=== PATIENT | male | born 1975 | race African-American/Black ===

== ENCOUNTER 2020-07-22 17:54 | Inpatient (IN) | payer OTHER ==
[~2020-07-22 17:54] MED LIST: Iopamidol-370 76% 500 ML 1 ML ONE; Rocuronium Bromide 10 MG/ML (10ML VIAL) ONE; Succinylcholine Chloride 20 MG/ML 10 ml SYRINGE FS ONE
[2020-07-22] MEDS ORDERED: Lorazepam 2 MG/ML VIAL ONE ×2 (18:00→19:33)
[2020-07-22] MEDS ORDERED: Rocuronium Bromide 10 MG/ML (10ML VIAL) ONE (18:15)
[2020-07-22] MEDS ORDERED: Fentanyl 100 MCG/2 ML VIAL ONE (18:25)
[2020-07-22] MEDS ORDERED: fentaNYL Citrate/PF 2,000 MCG in Sodium Chloride 0.9% 60 ML IV SCH (18:46)
[2020-07-22] MEDS ORDERED: Propofol 1,000 MG/100 ML VIAL IV ONE (18:58)
[2020-07-22] MEDS ORDERED: Boostrix 0.5 ML VIAL ONE (19:01)
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
[2020-07-22 19:06] LABS: Bilirubin Negative (Negative); Blood, Urine Negative (Negative); Clarity Clear (Clear); Glucose, Urine (Dipstick) Normal (Negative); Ketone, Urine Negative (Negative); Leukocyte Negative Leu/uL (Negative); Nitrite Negative (Negative); Protein, Urine (Dipstick) 20 mg/dL (Neg-Trace); Specific Gravity, Urine 1.017 (1.002-1.036); Urobilinogen Normal mg/dL (Less than 2); pH, Urine 5.5 (5.0-9.0)
[2020-07-22 19:11] LABS: #Basophils 0.1 thou/uL (0.0-0.2); #Eosinphils 0.1 thou/uL (0.0-0.7); #Lymphocytes 1.6 thou/uL (1.20-3.40); #Monocytes 1.2 thou/uL (0.11-0.59); #Neutrophils 13.2 thou/uL (1.40-6.50); %Basophils 0.4 % (0.0-1.0); %Eosinophils 0.9 % (0.0-10.0); %Lymphocytes 9.6 % (21.0-51.0); %Monocytes 7.5 % (0.0-10.0); %Neutrophils 81.6 % (42.0-75.0); Hemoglobin 13.7 g/dL (14.0-18.0); Mean Corpuscular HGB CONC 33.5 g/dL (32.0-36.0); Mean Corpuscular Hemoglobin 29.7 pg (27.0-31.0); Mean Corpuscular Volume 88.8 fL (78.0-98.0); Mean Platelet Volume 8.3 fL (7.4-10.4); Platelet Count 225 thou/uL (130-400); RBC Distribution Width 12.4 % (11.5-14.5); Red Blood Cell (RBC) Count 4.62 mill/uL (4.70-6.10); White Blood Cell (WBC) Count 16.2 thou/uL (4.8-10.8)
[2020-07-22 19:18] LABS: INR-International Normal Ratio 0.9; PTT 22.9 sec (22.9-36.1); Prothrombin Time 12.5 sec (12.0-14.7)
[2020-07-22 19:23] LABS: Actual Bicarbonate (HCO3a) 20.7 mEq/L (22-28); Analyzer IN Cardio ER; Base Excess (BEa) -3.2 mEq/L (-2.0 to +3.0); CO2 Tension 33.9 mmHg (35.0-45.0); Calcium, Ionized (arterial) 1.17 mmol/L (1.12-1.30); Carboxyhemoglobin (COHb) 3.7 gm% (0.0-3.0); Hemoglobin (Hb) 14.7 g/dL (14.0-18.0); O2 Tension (PaO2), arterial 91.5 mmHg (80.0-100.0); Potassium - ABG Lab 4.09 mmol/L (3.70-5.30)
[2020-07-22 19:24] LABS: Puncture Site LRA
[2020-07-22 19:25] LABS: ALV-art Gradient 151.325 (0-20)
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
[2020-07-22 19:39] LABS: ALT (SGPT) 20 U/L (8-55); AST (SGOT) 28 U/L (5-34); Acetaminophen Less than 6.0 mcg/mL (10.0-30.0); Albumin 3.7 g/dL (3.5-5.0); Alcohol Less than 10 mg/dL (Less than 10); Alkaline Phosphatase 95 U/L (40-110); Anion Gap 12 mmol/L (10-20); BUN (Urea Nitrogen) 17 mg/dL (8.9-20.6); Bilirubin, Total 0.3 mg/dL (0.2-1.2); CK (CPK) 679 U/L (30-200); Calc. Creatinine Clearance 0 mL/min (70-130); Calcium 8.3 mg/dL (7.8-10.44); Carbon Dioxide 21 mmol/L (22-29); Chloride 105 mmol/L (98-107); Estimated GFR-MDRD 64; Globulin 2.9 g/dL (2.4-3.5); Glucose 114 mg/dL (70-105); Lipase 21 U/L (8-78); Protein, Total 6.6 g/dL (6.0-8.3); Salicylate Less than 8.0 mg/dL (15.0-30.0); Sodium 134 mmol/L (136-145)
[2020-07-22] MEDS ORDERED: Lidocaine 1% (PF) 30 ML VIAL ONE (20:00)
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
[2020-07-22 20:38] LABS: Medtox Reader # READER 4; THC/Cannabinoid Screen Not Detected (NotDetected)
[2020-07-22 20:39] LABS: Amphetamine Not Detected (NotDetected); Barbiturates Screen Not Detected (NotDetected); Benzodiazepine Screen Not Detected (NotDetected); Cocaine Metabolite Screen Not Detected (NotDetected); Medtox Control Line Valid? VALID (VALID); Methadone Not Detected (NotDetected); Methamphetamine Not Detected (NotDetected); Opiate Screen Not Detected (NotDetected); Oxycodone Screen Not Detected (NotDetected); Phencyclidine (PCP) Detected (NotDetected); Tricyclic Screen Not Detected (NotDetected)
[2020-07-22] MEDS ORDERED: Dextrose 50% Abboject 50 ML SYRINGE SLOW IVP PRN (21:06)
[2020-07-22] MEDS ORDERED: Ondansetron ODT 4 MG TAB PO PRN (21:06)
[2020-07-22] MEDS ORDERED: hydrALAZINE 20 MG/ML VIAL SLOW IVP PRN (21:06)
[2020-07-22] MEDS ORDERED: Ventilator Sedation Protocol 1 EACH FS SCH (21:06)
[2020-07-22] MEDS ORDERED: Ondansetron PF 4 MG/2 ML Vial IVP PRN (21:06)
[2020-07-22] MEDS ORDERED: Dextrose 5% in Water 1,000 ML IV PRN (21:06)
[2020-07-22] MEDS ORDERED: Propofol BOLUS 1,000 MG/100 ML VIAL IV PRN (21:13)
[2020-07-22] MEDS ORDERED: Lorazepam 2 MG/ML VIAL SLOW IVP PRN (21:13)
[2020-07-22] MEDS ORDERED: DISCONTINUE PREVIOUS NARCOTIC PAIN MEDICATIONS AND BENZODIAZEPINES FS SCH (21:13)
[2020-07-22] MEDS ORDERED: Morphine 2 MG/ML VIAL SLOW IVP PRN (21:13)
[2020-07-22] MEDS ORDERED: Fentanyl BOLUS 250 ML IVPB PRN (21:13)
[2020-07-22 21:15] VITALS: BMI 34.5
[2020-07-22] MEDS: Famotidine/PF 20 mg/2ml Vial SLOW IVP SCH (21:53)
[2020-07-22] MEDS: Propofol 1,000 MG/100 ML VIAL IV PRN (21:53)
[2020-07-22] MEDS: Sodium Chloride 0.9% 1,000 ML IV SCH (21:56)
[2020-07-22 22:19] LABS: Lactic Acid 2.1 mmol/L (0.5-2.2)
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
[2020-07-23] MEDS: Propofol 1,000 MG/100 ML VIAL IV PRN ×3 (00:34→04:58)
[2020-07-23] MEDS: Sodium Chloride 0.9% 1,000 ML IV SCH (03:20)
[2020-07-23 03:54] LABS: #Basophils 0.1 thou/uL (0.0-0.2); #Eosinphils 0.1 thou/uL (0.0-0.7); #Lymphocytes 2.3 thou/uL (1.20-3.40); #Monocytes 1.2 thou/uL (0.11-0.59); #Neutrophils 8.9 thou/uL (1.40-6.50); %Basophils 0.6 % (0.0-1.0); %Eosinophils 1.2 % (0.0-10.0); %Lymphocytes 18.5 % (21.0-51.0); %Monocytes 9.2 % (0.0-10.0); %Neutrophils 70.6 % (42.0-75.0); Hemoglobin 13.5 g/dL (14.0-18.0); Mean Corpuscular HGB CONC 33.8 g/dL (32.0-36.0); Mean Corpuscular Hemoglobin 29.8 pg (27.0-31.0); Mean Corpuscular Volume 88.1 fL (78.0-98.0); Mean Platelet Volume 8.5 fL (7.4-10.4); Platelet Count 229 thou/uL (130-400); RBC Distribution Width 12.6 % (11.5-14.5); Red Blood Cell (RBC) Count 4.53 mill/uL (4.70-6.10); White Blood Cell (WBC) Count 12.6 thou/uL (4.8-10.8)
[2020-07-23 04:14] LABS: Anion Gap 13 mmol/L (10-20); BUN (Urea Nitrogen) 13 mg/dL (8.9-20.6); CK (CPK) 2210 U/L (30-200); Calc. Creatinine Clearance 131 mL/min (70-130); Calcium 8.3 mg/dL (7.8-10.44); Carbon Dioxide 22 mmol/L (22-29); Chloride 108 mmol/L (98-107); Estimated GFR-MDRD 89; Glucose 87 mg/dL (70-105); Phosphorus 2.1 mg/dL (2.3-4.7); Potassium 3.3 mmol/L (3.5-5.1); Sodium 140 mmol/L (136-145)
[2020-07-23] MEDS ORDERED: Lactated Ringer's 1,000 ML IV SCH ×4 (05:00→16:30)
[2020-07-23] MEDS ORDERED: Potassium Phosphate 30 MMOL in Sodium Chloride 0.9% 250 ML 250 ML IVPB SCH (05:30)
[2020-07-23] MEDS: Famotidine/PF 20 mg/2ml Vial SLOW IVP SCH ×2 (10:38→19:46)
[2020-07-23] MEDS: Cyclobenzaprine 10 MG TAB PO PRN ×2 (10:52→19:51)
[2020-07-23] MEDS: Acetaminophen 500 MG TAB PO PRN ×3 (10:52→22:31)
[2020-07-23 12:34] LABS: SARS-CoV-2 MS2 Positive; SARS-CoV-2 N Gene Negative; SARS-CoV-2 S Gene Negative; SARS-CoV-2 by NAA Not Detected (NotDetected); SARS-CoV-2 orf1ab Negative
[2020-07-23] MEDS: Ibuprofen 800 MG TAB PO PRN ×2 (13:19→22:31)
[2020-07-23] MEDS ORDERED: Furosemide 20 MG/2 ML VIAL SLOW IVP SCH (16:30)
[2020-07-23] MEDS ORDERED: Sodium Bicarbonate 150 MEQ in Dextrose 5% in Water 1,000 ML IV SCH (16:30)
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
[2020-07-23] MEDS: Lactated Ringer's 1,000 ML IV SCH ×2 (19:46→23:44)
[2020-07-23 21:41] LABS: Anion Gap 12 mmol/L (10-20); BUN (Urea Nitrogen) 11 mg/dL (8.9-20.6); Calc. Creatinine Clearance 131 mL/min (70-130); Calcium 7.9 mg/dL (7.8-10.44); Carbon Dioxide 23 mmol/L (22-29); Chloride 109 mmol/L (98-107); Estimated GFR-MDRD 89; Glucose 131 mg/dL (70-105); Potassium 3.8 mmol/L (3.5-5.1); Sodium 140 mmol/L (136-145)
[2020-07-23 21:53] LABS: CK (CPK) 5245 U/L (30-200)
[2020-07-24] MEDS: Lactated Ringer's 1,000 ML IV SCH ×3 (00:43→12:18)
[2020-07-24] MEDS: Cyclobenzaprine 10 MG TAB PO PRN ×2 (04:55→20:22)
[2020-07-24 05:18] LABS: #Basophils 0.1 thou/uL (0.0-0.2); #Eosinphils 0.3 thou/uL (0.0-0.7); #Lymphocytes 2.4 thou/uL (1.20-3.40); %Basophils 0.5 % (0.0-1.0); %Eosinophils 3.4 % (0.0-10.0); %Lymphocytes 24.7 % (21.0-51.0); %Neutrophils 61.4 % (42.0-75.0); Hemoglobin 11.4 g/dL (14.0-18.0); Mean Corpuscular HGB CONC 32.3 g/dL (32.0-36.0); Mean Corpuscular Hemoglobin 29.3 pg (27.0-31.0); Mean Corpuscular Volume 90.5 fL (78.0-98.0); Mean Platelet Volume 8.3 fL (7.4-10.4); Platelet Count 209 thou/uL (130-400); RBC Distribution Width 12.6 % (11.5-14.5); Red Blood Cell (RBC) Count 3.89 mill/uL (4.70-6.10); White Blood Cell (WBC) Count 9.7 thou/uL (4.8-10.8)
[2020-07-24 05:50] LABS: Anion Gap 11 mmol/L (10-20); BUN (Urea Nitrogen) 8 mg/dL (8.9-20.6); Calc. Creatinine Clearance 154 mL/min (70-130); Carbon Dioxide 24 mmol/L (22-29); Chloride 111 mmol/L (98-107); Estimated GFR-MDRD Greater than 90; Glucose 114 mg/dL (70-105); Phosphorus 3.4 mg/dL (2.3-4.7); Potassium 4.1 mmol/L (3.5-5.1); Sodium 142 mmol/L (136-145)
[2020-07-24] MEDS ORDERED: Chlorhexidine Gluconate 15 ML UDCUP SSP PRN (07:37)
[2020-07-24] MEDS: Famotidine/PF 20 mg/2ml Vial SLOW IVP SCH ×2 (07:53→20:22)
[2020-07-24] MEDS: Enoxaparin Sodium 40 MG/0.4 ML SYRINGE SC SCH (07:53)
[2020-07-24] MEDS ORDERED: Chlorhexidine Gluconate 15 ML UDCUP SSP SCH (09:00)
[2020-07-24] MEDS: Ibuprofen 800 MG TAB PO PRN ×2 (09:32→20:22)
[2020-07-24] MEDS ORDERED: Chloraseptic Spray 180 ml Bottle PO PRN (10:42)
[2020-07-24] MEDS: Acetaminophen 500 MG TAB PO SCH ×3 (10:58→22:42)
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
[2020-07-24 12:13] LABS: Anion Gap 12 mmol/L (10-20); BUN (Urea Nitrogen) 6 mg/dL (8.9-20.6); Calc. Creatinine Clearance 183 mL/min (70-130); Carbon Dioxide 22 mmol/L (22-29); Chloride 110 mmol/L (98-107); Estimated GFR-MDRD Greater than 90; Glucose 114 mg/dL (70-105); Sodium 140 mmol/L (136-145)
[2020-07-25] MEDS: Lactated Ringer's 1,000 ML IV SCH (00:12)
[2020-07-25] MEDS ORDERED: traMADol HCl 50 MG TAB PO PRN (00:43)
[2020-07-25 05:11] LABS: Hemoglobin 11.3 g/dL (14.0-18.0); Mean Corpuscular HGB CONC 31.5 g/dL (32.0-36.0); Mean Corpuscular Hemoglobin 28.4 pg (27.0-31.0); Mean Platelet Volume 8.3 fL (7.4-10.4); Platelet Count 214 thou/uL (130-400); RBC Distribution Width 12.5 % (11.5-14.5); Red Blood Cell (RBC) Count 3.98 mill/uL (4.70-6.10); White Blood Cell (WBC) Count 8.4 thou/uL (4.8-10.8)
[2020-07-25] MEDS: Acetaminophen 500 MG TAB PO SCH (05:16)
[2020-07-25 05:30] LABS: CK (CPK) 3753 U/L (30-200); Magnesium 1.9 mg/dL (1.6-2.6); Phosphorus 3.7 mg/dL (2.3-4.7)
[2020-07-25 07:16] VITALS: TEMP 97.7
[2020-07-25 08:31] VITALS: BP 139/83
[2020-07-25] MEDS: Famotidine/PF 20 mg/2ml Vial SLOW IVP SCH (08:31)
[2020-07-25] MEDS: Enoxaparin Sodium 40 MG/0.4 ML SYRINGE SC SCH (08:31)
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
== END 2020-07-25 11:00 | disposition home or self-care (01) | DRG 605 ==
LOC: ERS 17:54 → CCU 18:32 → EDBD 18:32 → SURG A 07-23 18:33
PROVIDERS: ADMIT Surgery; ATTEND Surgery
PROC: 0BH17EZ Insertion of Endotracheal Airway into Trachea, Via Natural or Artificial Opening (ICD-10-PCS; principal; 2020-07-22)
PROC: 5A1935Z Respiratory Ventilation, Less than 24 Consecutive Hours (ICD-10-PCS; 2020-07-22)
PROC: 5A09357 Assistance with Respiratory Ventilation, Less than 24 Consecutive Hours, Continuous Positive Airway Pressure (ICD-10-PCS; 2020-07-23)
DX: S00.03XA Contusion of scalp, initial encounter (principal); E87.6 Hypokalemia; E83.39 Other disorders of phosphorus metabolism; S61.411A Laceration without foreign body of right hand, initial encounter; F16.129 Hallucinogen abuse with intoxication, unspecified; T79.6XXA Traumatic ischemia of muscle, initial encounter; V89.2XXA Person injured in unspecified motor-vehicle accident, traffic, initial encounter
CPT/HCPCS: 12001; 12011; 31500; 36415; 36416; 51703; 70450; 71260; 72125; 74177; 80048; 80053; 80306; 80307; 81003; 82550; 82805; 83605; 83690; 83735; 83874; 84100; 84443; 84484; 85025; 85027; 85610; 85730; 86850; 86900; 86901; 87635; 90471; 90715; 93005; 94002; 94003; 94640; 96361; 96365; 96368; 96374; 96375; 96376; J0360; J0690; J1650; J1940; J2001; J2060; J2704; J3010; J3490; J7050; J7620; Q9967; S0028; U0003

== ENCOUNTER 2020-10-04 11:29 | Emergency (ER) | payer OTHER ==
--- NOTE | 2020-10-04 12:24 | RAD ---
EXAM: 3 views of the left ankle HISTORY: Ankle pain COMPARISON: None FINDINGS: 3 views of the left ankle shows no evidence of acute fracture or dislocation. Mild lateral and dorsal soft tissue swelling is seen. Mild degenerative changes are present in the midfoot. IMPRESSION: No evidence of acute osseous abnormality.
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
[2020-10-04] MEDS ORDERED: Ibuprofen 800 MG TAB ONE (12:46)
== END 2020-10-04 13:21 | disposition home or self-care (01) ==
LOC: ERS 11:29
DX: S93.402A Sprain of unspecified ligament of left ankle, initial encounter (principal); F41.9 Anxiety disorder, unspecified; F32.9 Major depressive disorder, single episode, unspecified; F17.210 Nicotine dependence, cigarettes, uncomplicated; X50.1XXA Overexertion from prolonged static or awkward postures, initial encounter

== ENCOUNTER 2021-10-30 17:40 | Emergency (ER) | payer OTHER | END 2021-10-30 18:56 | disposition left against medical advice (07) | LOC: ERS 17:40 | DX: Z53.21 Procedure and treatment not carried out due to patient leaving prior to being seen by health care provider (principal) | CPT/HCPCS: 93005 ==

== ENCOUNTER 2025-06-13 21:34 | Inpatient (IN) | payer MEDICARE, MEDICAID ==
[2025-06-13 22:06] LABS: #Basophils 0.07 10x3/uL (0.0-0.2); #Eosinophils 0.10 10x3/uL (0.0-0.7); #Monocytes 1.09 10x3/uL (0.11-0.59); #Neutrophils 8.43 10x3/uL (1.40-6.50); %Basophils 0.5 % (0.0-1.0); %Eosinophils 0.8 % (0.0-10.0); %Lymphocytes 23.9 % (21.0-51.0); %Monocytes 8.5 % (0.0-10.0); %Neutrophils 65.4 % (42.0-75.0); Hematocrit 43.6 % (42.0-52.0); Hemoglobin 14.7 g/dL (14.0-18.0); Mean Corpuscular Hemoglobin 29.3 pg (27.0-31.0); Mean Corpuscular Volume 87.0 fL (78.0-98.0); Platelet Count 289 10x3/uL (130-400); Red Blood Cell (RBC) Count 5.01 mill/uL (4.70-6.10); White Blood Cell (WBC) Count 12.88 10x3/uL (4.8-10.8)
[2025-06-13 22:21] LABS: Actual Bicarbonate (HCO3v) 18.6 mEq/L (22-28); Base Excess -6.0 mEq/L (-2.0 to +3.0); Calcium, Ionized (venous) 1.08 mmol/L (1.16-1.32); Chloride (VBG) 102 mmol/L (98-106); Hematocrit-VBG 45 % (42.0-52.0); Hemoglobin (Hb) 15.3 g/dL (13.1-17.2); Potassium (VBG) 4.22 mmol/L (3.70-5.30); Sodium 139 mmol/L (133-146)
[2025-06-13 22:27] LABS: ALT (SGPT) 21 U/L (Less than 45); AST (SGOT) 53 U/L (11-34); Acetaminophen Less than 10 mcg/mL (Less than 10); Albumin 4.0 g/dL (3.1-4.5); Alkaline Phosphatase 114 U/L (40-110); Anion Gap 22 mmol/L (10-20); BUN (Urea Nitrogen) 13 mg/dL (8.9-20.6); Bilirubin, Total 0.2 mg/dL (0.3-1.2); Calc. Creatinine Clearance 0 mL/min (70-130); Calcium 8.9 mg/dL (7.8-10.44); Carbon Dioxide 16 mmol/L (22-29); Chloride 104 mmol/L (98-107); Globulin 3.5 g/dL (2.4-3.5); Glucose 156 mg/dL (70-105); Magnesium 2.2 mg/dL (1.6-2.6); Potassium 3.9 mmol/L (3.5-5.1); Salicylate Less than 8.0 mg/dL (Less than 8.0); Sodium 138 mmol/L (136-145)
[2025-06-13 22:28] LABS: Troponin I Less than 0.010 ng/mL (< 0.028)
[2025-06-14] MEDS: Sodium Bicarb 50 MEQ/50 ML Abboject 8.4% SYRINGE IVP SCH (01:03)
[2025-06-14 01:21] VITALS: BMI 32.3
[2025-06-14 03:51] LABS: Bacteria/HPF None Seen HPF (None Seen); CAUTI Indications for Culture Dysuria,urgency,freq; Glucose, Urine (Dipstick) Normal (Negative); Leukocyte Negative Leu/uL (Negative); Protein, Urine (Dipstick) Negative (Neg-Trace); RBC/HPF 0-3 HPF (0-3); Specific Gravity, Urine 1.006 (1.002-1.036); WBC/HPF 0-3 HPF (0-3)
[2025-06-14] MEDS: Acetaminophen 500 MG TAB PO SCH (04:11)
[2025-06-14 04:15] LABS: Urine Culture Reflex No No
[2025-06-14 05:09] LABS: #Basophils 0.05 10x3/uL (0.0-0.2); #Eosinophils 0.12 10x3/uL (0.0-0.7); #Monocytes 1.55 10x3/uL (0.11-0.59); #Neutrophils 9.54 10x3/uL (1.40-6.50); %Basophils 0.4 % (0.0-1.0); %Eosinophils 0.9 % (0.0-10.0); %Lymphocytes 16.3 % (21.0-51.0); %Monocytes 11.4 % (0.0-10.0); %Neutrophils 70.5 % (42.0-75.0); Hematocrit 37.7 % (42.0-52.0); Hemoglobin 12.3 g/dL (14.0-18.0); Mean Corpuscular Hemoglobin 28.8 pg (27.0-31.0); Mean Corpuscular Volume 88.3 fL (78.0-98.0); Platelet Count 228 10x3/uL (130-400); Red Blood Cell (RBC) Count 4.27 mill/uL (4.70-6.10); White Blood Cell (WBC) Count 13.54 10x3/uL (4.8-10.8)
[2025-06-14 05:31] LABS: ALT (SGPT) 23 U/L (Less than 45); AST (SGOT) 65 U/L (11-34); Albumin 3.2 g/dL (3.1-4.5); Alkaline Phosphatase 106 U/L (40-110); Anion Gap 11 mmol/L (10-20); BUN (Urea Nitrogen) 15 mg/dL (8.9-20.6); Bilirubin, Total 0.2 mg/dL (0.3-1.2); CK (CPK) 3805 U/L (30-200); Calc. Creatinine Clearance 119 mL/min (70-130); Calcium 8.0 mg/dL (7.8-10.44); Carbon Dioxide 26 mmol/L (22-29); Chloride 108 mmol/L (98-107); Globulin 2.6 g/dL (2.4-3.5); Glucose 102 mg/dL (70-105); Potassium 3.9 mmol/L (3.5-5.1); Sodium 141 mmol/L (136-145)
[2025-06-14] MEDS: Enoxaparin 40 MG (0.4 mL) SYRINGE SC SCH (09:26)
[2025-06-14] MEDS: Thiamine 100 MG TAB PO SCH (09:26)
[2025-06-14] MEDS ORDERED: Acetaminophen 325 MG TAB PO PRN (10:00)
[2025-06-14] MEDS ORDERED: cloNIDine 0.1 MG TAB PO PRN (10:15)
[2025-06-14] MEDS: Methocarbamol 500 MG TAB PO SCH ×2 (11:21→19:56)
[2025-06-15 04:51] LABS: #Basophils 0.05 10x3/uL (0.0-0.2); #Eosinophils 0.21 10x3/uL (0.0-0.7); #Monocytes 0.82 10x3/uL (0.11-0.59); #Neutrophils 4.28 10x3/uL (1.40-6.50); %Basophils 0.7 % (0.0-1.0); %Eosinophils 2.9 % (0.0-10.0); %Lymphocytes 24.2 % (21.0-51.0); %Monocytes 11.5 % (0.0-10.0); %Neutrophils 60.1 % (42.0-75.0); Hematocrit 37.4 % (42.0-52.0); Hemoglobin 12.3 g/dL (14.0-18.0); Mean Corpuscular Hemoglobin 29.2 pg (27.0-31.0); Mean Corpuscular Volume 88.8 fL (78.0-98.0); Platelet Count 235 10x3/uL (130-400); Red Blood Cell (RBC) Count 4.21 mill/uL (4.70-6.10); White Blood Cell (WBC) Count 7.12 10x3/uL (4.8-10.8)
[2025-06-15 05:15] LABS: Anion Gap 10 mmol/L (10-20); BUN (Urea Nitrogen) 12 mg/dL (8.9-20.6); CK (CPK) 3917 U/L (30-200); Calc. Creatinine Clearance 158 mL/min (70-130); Calcium 8.6 mg/dL (7.8-10.44); Carbon Dioxide 25 mmol/L (22-29); Chloride 109 mmol/L (98-107); Glucose 96 mg/dL (70-105); Potassium 4.3 mmol/L (3.5-5.1); Sodium 140 mmol/L (136-145)
[2025-06-15] MEDS: Ketorolac Tromethamine 30 MG (1 mL) VIAL IVP SCH (12:40)
[2025-06-15] MEDS: HYDROcodone/Acetaminophen 5/325 mg Tablet PO PRN (12:41)
[2025-06-16 07:09] LABS: #Basophils 0.06 10x3/uL (0.0-0.2); #Eosinophils 0.29 10x3/uL (0.0-0.7); #Monocytes 0.73 10x3/uL (0.11-0.59); #Neutrophils 3.96 10x3/uL (1.40-6.50); %Basophils 0.8 % (0.0-1.0); %Eosinophils 4.1 % (0.0-10.0); %Lymphocytes 28.7 % (21.0-51.0); %Monocytes 10.2 % (0.0-10.0); %Neutrophils 55.5 % (42.0-75.0); Hematocrit 36.3 % (42.0-52.0); Hemoglobin 11.8 g/dL (14.0-18.0); Mean Corpuscular Hemoglobin 29.3 pg (27.0-31.0); Mean Corpuscular Volume 90.1 fL (78.0-98.0); Platelet Count 216 10x3/uL (130-400); Red Blood Cell (RBC) Count 4.03 mill/uL (4.70-6.10); White Blood Cell (WBC) Count 7.14 10x3/uL (4.8-10.8)
[2025-06-16 08:03] LABS: BUN (Urea Nitrogen) 10 mg/dL (8.9-20.6); CK (CPK) 1869 U/L (30-200)
[2025-06-16 08:04] LABS: Calcium 8.3 mg/dL (7.8-10.44); Chloride 107 mmol/L (98-107); Glucose 125 mg/dL (70-105); Potassium 4.0 mmol/L (3.5-5.1); Sodium 137 mmol/L (136-145)
[2025-06-16 08:05] LABS: Anion Gap 9 mmol/L (10-20); Calc. Creatinine Clearance 142 mL/min (70-130); Carbon Dioxide 25 mmol/L (22-29)
[2025-06-16] MEDS ORDERED: Ketorolac Tromethamine 30 MG (1 mL) VIAL IVP PRN (16:43)
[2025-06-17 04:55] LABS: #Basophils 0.07 10x3/uL (0.0-0.2); #Eosinophils 0.33 10x3/uL (0.0-0.7); #Monocytes 0.62 10x3/uL (0.11-0.59); #Neutrophils 4.71 10x3/uL (1.40-6.50); %Basophils 0.9 % (0.0-1.0); %Eosinophils 4.3 % (0.0-10.0); %Lymphocytes 24.8 % (21.0-51.0); %Monocytes 8.1 % (0.0-10.0); %Neutrophils 61.4 % (42.0-75.0); Hematocrit 36.9 % (42.0-52.0); Hemoglobin 12.0 g/dL (14.0-18.0); Mean Corpuscular Hemoglobin 28.8 pg (27.0-31.0); Mean Corpuscular Volume 88.7 fL (78.0-98.0); Platelet Count 230 10x3/uL (130-400); Red Blood Cell (RBC) Count 4.16 mill/uL (4.70-6.10); White Blood Cell (WBC) Count 7.67 10x3/uL (4.8-10.8)
[2025-06-17 05:11] LABS: Anion Gap 12 mmol/L (10-20); BUN (Urea Nitrogen) 11 mg/dL (8.9-20.6); Calc. Creatinine Clearance 133 mL/min (70-130); Calcium 8.6 mg/dL (7.8-10.44); Carbon Dioxide 25 mmol/L (22-29); Chloride 106 mmol/L (98-107); Glucose 143 mg/dL (70-105); Potassium 3.9 mmol/L (3.5-5.1); Sodium 139 mmol/L (136-145)
[2025-06-17 11:42] VITALS: TEMP 97.4
[2025-06-17 14:03] VITALS: BP 120/63
== END 2025-06-17 14:44 | disposition home or self-care (01) | DRG 918 ==
LOC: ERS 21:34 → 2NO 23:05
PROVIDERS: ADMIT Internal Medicine; ATTEND Family Medicine
DX: T40.991A Poisoning by other psychodysleptics [hallucinogens], accidental (unintentional), initial encounter (principal); N17.9 Acute kidney failure, unspecified; E87.20 Acidosis, unspecified; M62.82 Rhabdomyolysis; R00.0 Tachycardia, unspecified; I10 Essential (primary) hypertension; F41.9 Anxiety disorder, unspecified; F19.10 Other psychoactive substance abuse, uncomplicated; F20.9 Schizophrenia, unspecified; R10.30 Lower abdominal pain, unspecified; Y90.3 Blood alcohol level of 60-79 mg/100 ml; F17.210 Nicotine dependence, cigarettes, uncomplicated; Z98.890 Other specified postprocedural states; Z90.49 Acquired absence of other specified parts of digestive tract; E86.0 Dehydration; F10.10 Alcohol abuse, uncomplicated; T51.91XA Toxic effect of unspecified alcohol, accidental (unintentional), initial encounter; R10.32 Left lower quadrant pain
CPT/HCPCS: 36415; 36416; 72100; 72170; 72192; 80048; 80053; 80307; 81001; 82550; 82805; 83605; 83735; 84443; 84484; 85025; 87040; 93005; 96360; 96361; J1650; J1885; J2060; J7030; J7120